=== PATIENT | male | born 1995 | race Caucasian/White ===

== ENCOUNTER 2020-08-13 06:26 | Outpatient (REF) | payer OTHER, SELFPAY | END 2020-08-13 06:27 | disposition home or self-care (01) | LOC: HO.LAB 06:26 | PROVIDERS: Visit Provider Internal Medicine | DX: Z20.828 Contact with and (suspected) exposure to other viral communicable diseases (principal) | CPT/HCPCS: C9803; U0003 ==

== ENCOUNTER 2022-11-30 12:00 | Emergency (ER) | payer MEDICAID, SELFPAY ==
--- NOTE | ~2022-11-30 | US_ITS ---
EXAMINATION: US SCROTUM CLINICAL INFORMATION: Right testicular pain. COMPARISON: None TECHNIQUE: A sonogram of the scrotum was performed assessing escamilla-scale appearance and color Doppler flow. Spectral Doppler analysis of the arterial and venous flow were performed in the testes bilaterally. FINDINGS: RIGHT: Right testicle measures 4.6 x 2.9 x 3.0 cm, volume 21.1 mL. No focal testicular parenchymal lesions are visualized. Spectral Doppler analysis of the arterial and venous flow is normal in the right testis. Right epididymal head is normal in size. No right hydrocele or varicocele is seen. Right epididymal Doppler flow is normal. Multiple epididymal head cysts are present the largest measuring 4 mm in diameter. LEFT: Left testicle measures 4.9 x 3.0 x 3.3 cm, volume 25.2 mL. No focal testicular parenchymal lesions are visualized. Spectral Doppler analysis of the arterial and venous flow is normal in the left testis. Left epididymal head is normal in size. No left varicocele is seen. There is a small left hydrocele. Left epididymal Doppler flow is normal. US/US scrotum doppler IMPRESSION: No significant scrotal abnormality appreciated.
--- NOTE | ~2022-11-30 | US_ITS ---
EXAMINATION: US SCROTUM CLINICAL INFORMATION: Right testicular pain. COMPARISON: None TECHNIQUE: A sonogram of the scrotum was performed assessing escamilla-scale appearance and color Doppler flow. Spectral Doppler analysis of the arterial and venous flow were performed in the testes bilaterally. FINDINGS: RIGHT: Right testicle measures 4.6 x 2.9 x 3.0 cm, volume 21.1 mL. No focal testicular parenchymal lesions are visualized. Spectral Doppler analysis of the arterial and venous flow is normal in the right testis. Right epididymal head is normal in size. No right hydrocele or varicocele is seen. Right epididymal Doppler flow is normal. Multiple epididymal head cysts are present the largest measuring 4 mm in diameter. LEFT: Left testicle measures 4.9 x 3.0 x 3.3 cm, volume 25.2 mL. No focal testicular parenchymal lesions are visualized. Spectral Doppler analysis of the arterial and venous flow is normal in the left testis. Left epididymal head is normal in size. No left varicocele is seen. There is a small left hydrocele. Left epididymal Doppler flow is normal. US/US scrotum IMPRESSION: No significant scrotal abnormality appreciated.
--- NOTE | 2022-11-30 12:13 | ED.GENADULT ---
HPI - General Adult General Chief complaint: Urogenital-Male Stated complaint: testicle pain Time Seen by Provider: 11/30/22 12:02 Source: patient Mode of arrival: ambulatory Limitations: no limitations History of Present Illness HPI narrative: 27-year-old male presents to ED for right testicular pain since yesterday. patient denies any abdominal pain, nausea, vomiting, flank pain, fever, chills, penile discharge, penile lesions, testicular redness/blackness. Patient denies any recent trauma. Patient states testicular pain occurred without any trauma or sudden movement. Related Data Previous Rx's Medication Instructions Recorded naproxen 500 mg tablet 500 mg PO BID PRN pain 10 days #20 11/30/22 tabs Allergies Allergy/AdvReac Type Severity Reaction Status Date / Time No Known Allergies Allergy Verified 11/30/22 12:26 Review of Systems Review of Systems: Testicular pain Yes all other systems are reviewed and are negative [facility] Social History Social History Alcohol intake: current Alcohol intake frequency: a few times a month Smoked in Last 30 Days: No Use of substances other than those prescribed or required for medical reasons: No Advance Directives: No Advance Directives Information Provided: No Physical Exam ED Vital Signs: Vital Signs - 24 hr 11/30/22 12:21 11/30/22 14:00 11/30/22 15:13 Temperature 98.8 F 98.9 F Pulse Rate 62 63 65 Respiratory Rate 12 13 16 Blood Pressure 119/81 117/68 119/66 Pulse Oximetry 100 100 99 Oxygen Delivery Method Room Air Room Air Room Air BMI result Body Mass Index 24.3 Const General: cooperative, healthy appearing, comfortable, no acute distress, well developed, alert, awake and Physically active Orientation/consciousness: oriented to person, oriented to place, oriented to time and [facility]: Yes normal to inspection, Yes No palpable skull fracture present, Yes normocephalic, Yes atraumatic and No abrasion Eyes General: appearance normal, both eyes and all related structures Neck Neck: Yes normal visual inspection, Yes full ROM, Yes no lymphadenopathy, Yes no meningeal signs, Yes trachea midline, Yes supple, No anterior neck swelling and No tender Chest Chest palpation & inspection: normal inspection of the chest and normal palpation of entire chest wall Resp Effort & Inspection: normal respiratory effort and able to speak in complete sentences Auscultation: clear to auscultation bilaterally Cardio Jugular venous distension: no JVD Heart sounds: S1 normal heart sound present and S2 normal heart sound present GI Inspection: Yes normal to inspection and No abdominal wall ecchymosis Palpation (GI): Soft to palpation, not firm, nontender, no guarding and not rigid General: No CVA tenderness and Yes no CVA tenderness Penis: normal penis and circumcised Meatus: meatus normal Scrotum: scrotum normal Testes: Testes normal and testicular tenderness on the right Back/Spine/Pelvis Back: no CVA tenderness, No CVA tenderness and No Vargas-Baker sign present Skin General skin exam: no rashes or lesions noted and elasticity normal Neuro General: oriented to person, oriented to place, oriented to time, patient oriented x3, gait normal, tone normal, moves all extremities, Normal light touch and pain sensation, no meningeal signs, no focal motor deficits, CN's II-XI intact bilaterally and normal sensation to monofilament Extrem General: Yes normal to inspection and Yes full ROM Psych Appearance: grossly normal, well kempt and not disheveled Course Course Course Narrative: UA, CT injury, and ultrasound ordered Reevaluation(s) Reevaluation #1: UA normal. Ultrasound negative for torsion or epididymitis. Patient prefer waiting and to be called in for treatment if either chlamydia gonorrhea is positive. Patient himself not concerned STI, Although treatment was offered. Time: 15:00 Medical Decision Making Medical Decision Making [facility] Narrative: 27-year-old male with right-sided testicular pain. UA ultrasounds ordered. Patient well-appearing. Differential Diagnosis Differential Diagnoses: The differential diagnosis associated with the presentation includes ( Testicular torsion, epididymitis, hydrocele, Varocele, UTI, STI) Lab Data [facility] Lab Attestation statement: I reviewed the patient's lab results. Labs: Lab Results 11/30/22 Range/Units 13:35 Urine Color Yellow Urine Appearance Clear Urine pH 7.0 (5.0-9.0) Ur Specific [place] <= 1.005 (1.005-1.025) Urine Protein Negative (Neg-Trace) mg/dL Urine Glucose (UA) Negative (Negative) mg/dL Urine Ketones Negative (Negative) mg/dL Urine Blood Negative (Negative) Urine Nitrite Negative (Negative) Ur Leukocyte Esterase Negative (Negative) Independent Interpretation I performed an independent interpretation of an: Ultrasound Radiology Impression Discussion of test interpretation with radiology: I have reviewed the radiologist's reading. Prescription Management I considered prescription management with: Pain Medication (naproxen) Discharge Plan Discharge Clinical Impression: Pain in testicle Patient Disposition: Home, Self-Care Instructions: Testicle Pain (ED) Additional Instructions: your urine and ultrasound came back normal. Please follow-up with your primary care provider. Return to the ED immediately for penile discharge, penile lesions, worsening testicular pain, nausea, vomiting, bloody urine, fever, chills, flank pain, or any other concerning symptoms. Prescriptions: New naproxen 500 mg tablet 500 mg PO BID PRN (Reason: pain) 10 Days Qty: 20 0RF Stand Alone Forms: Work/School Release Interventions: ED Discharge Assessment Last Done: 11/30/22 15:15 Discharge Date/Time: 11/30/22 15:15 Print Language: Yoruba
[2022-11-30 12:21] VITALS: BP 119/81; PULSE 62; RESP 12; TEMP 37.1; O2SAT 100; BMI 24.3
--- NOTE | 2022-11-30 12:55 | PC.NURSE ---
Ultrasound in room with patient at this time.
[2022-11-30 13:45] LABS: Appearance Urine Clear; Color Urine Yellow; Glucose Urine UA Negative (Negative); Leukocyte Esterase Urine Negative (Negative); Nitrite Urine Negative (Negative); Specific Gravity - Urine <= 1.005 (1.005-1.025); Urine Blood Negative (Negative); Urine Ketones Negative (Negative); Urine Protein Negative (Neg-Trace)
[2022-11-30 14:00] VITALS: BP 117/68; PULSE 63; RESP 13; TEMP 37.2; O2SAT 100
[2022-11-30 15:13] VITALS: BP 119/66; PULSE 65; RESP 16; O2SAT 99
[2022-11-30 18:06] LABS: CT PCR NOT DETECTED (Not Detect.); NG PCR NOT DETECTED (Not Detect.)
== END 2022-11-30 15:15 | disposition home or self-care (01) ==
PROVIDERS: Physician Assistant; Emergency Provider Student in an Organized Health Care Education/Training Program
DX: N50.811 Right testicular pain (principal); Z79.899 Other long term (current) drug therapy
CPT/HCPCS: 0353U; 76870; 81003; 93975; 99284